=== PATIENT | female | born 1995 | race American Indian/Alaskan Native ===

== ENCOUNTER 2019-04-11 12:07 | Outpatient (CLI) | payer OTHER ==
--- NOTE | 2019-04-11 13:14 | XRay Report ---
ABDOMEN 1 VIEW(S) INDICATION / CLINICAL INFORMATION: Abdominal pain, renal stone. COMPARISON: None available. FINDINGS: TUBES / LINES: None. BOWEL GAS PATTERN: No significant abnormality. FREE AIR / EXTRALUMINAL GAS: None seen. ADDITIONAL FINDINGS: An 8 mm calcification overlies the superior right kidney. A 10 mm calcification overlies the inferior right kidney. No left renal calcifications are identified. IMPRESSION: Right nephrolithiasis Signer Name: Zay Plascencia Jr, MD Signed: 04/11/2019 1:10 PM Workstation Name: [id number]
== END 2019-04-11 12:08 | disposition home or self-care (01) ==
LOC: XRAY 12:07
PROVIDERS: ATTEND Internal Medicine
DX: N20.0 Calculus of kidney (principal)
CPT/HCPCS: 74018